=== PATIENT | male | born 1970 | race Caucasian/White ===

== ENCOUNTER 2017-08-02 03:00 | Emergency (ER) | payer MEDICAID ==
[~2017-08-02] VITALS: Ht 175.3 cm; Wt 80.8 kg
[2017-08-02 03:01] VITALS: BP 142/99
[2017-08-02] MEDS ORDERED: FLUORESCEIN OPHTHALMIC 1 MG STRIP ONE ×2 (03:06→03:11)
[2017-08-02] MEDS ORDERED: PROPARACAINE OPHTH 0.5%, 15ML ONE ×2 (03:07→03:12)
[2017-08-02] MEDS ORDERED: DIPH,PERTUSS(ACELL),TET VAC/PF 0.5 ML IM-VACC ONE ×2 (04:30→04:42)
== END 2017-08-02 04:52 | disposition home or self-care (01) ==
LOC: ED 04:40
DX: S05.01XA Injury of conjunctiva and corneal abrasion without foreign body, right eye, initial encounter (principal); X58.XXXA Exposure to other specified factors, initial encounter; Y93.89 Activity, other specified; Y99.8 Other external cause status; Y92.89 Other specified places as the place of occurrence of the external cause
CPT/HCPCS: 65222; 90471; 90715; 99284